=== PATIENT | male | born 1990 | race Caucasian/White ===

== ENCOUNTER 2017-11-09 17:52 | Emergency (ER) | payer OTHER ==
[2017-11-09 17:53] VITALS: BP 114/77
== END 2017-11-09 18:06 ==
LOC: ER 17:53
DX: Z02.89 Encounter for other administrative examinations (principal); F10.10 Alcohol abuse, uncomplicated; F17.210 Nicotine dependence, cigarettes, uncomplicated; Z88.0 Allergy status to penicillin
CPT/HCPCS: 99283